=== PATIENT | male | born 1980 | race Caucasian/White ===

== ENCOUNTER → 2024-03-01 14:05 | Outpatient (REF) | payer SELFPAY | LOC: HWRAD 14:05 | PROVIDERS: ATTENDING PHYSICIAN Nurse Practitioner; FAMILY PHYSICIAN Nurse Practitioner Adult Health | DX: I10 Essential (primary) hypertension (principal) | CPT/HCPCS: 75571 ==

== ENCOUNTER 2024-03-27 09:02 | Emergency (ER) | payer BC, SELFPAY ==
[2024-03-27 09:05] VITALS: BP 149/85
--- NOTE | 2024-03-27 11:58 | ED.GENMED ---
History of Present Illness
General
Chief Complaint: Musculo-Skeletal Complaint
Source: patient
Exam Limitations: none
Time Seen by Provider: 03/27/24 09:22
Nursing documentation reviewed up to this point in time: agreed with
History of Present Illness
History of Present Illness:
43 y/o M with h/o HTN, anxiety
left heel pain 2 days ago when he jumped about 6 feet down out of his truck and landed on his left heel
has been able to ewight bear with limp, plcing weight on ball of his foot
maybe mild STS
no skin changes
no other pain
Past History
Past History
ED Past Medical History: GERD, HTN and Psychiatric
Social History
Tobacco: Former smoker
Alcohol: None
Review of Systems
Review of Systems
Allergies reviewed?: Yes
All Other Systems: Not applicable
Phy Exam
Physical Exam
Physical Exam:
GENERAL: Alert , in no apparent distress, comfortable at rest
HEAD: NCAT
CV: 2+ DP PULSES B/L
NEUROLOGICAL: Alert and oriented, no focal neuro deficits, , 5/5 strength, sensation intact, ambulation slight limp right leg
SKIN: Warm and dry, no skin changes/wounds but some calluses to heel and distal foot
MUSCULOSKELETAL: heel is tender mildy with palpation, no other foot tenderness
PSYCH: Normal and appropriate interaction.
Course
Orders/Labs/Results
Orders:
Orders
03/27/24 09:08
Heel, Left 2 View [CR Heel/os [place]cis - Left 2 Vw*] Urgent
Comment: with barefeet
Reason For Exam: left heel pain after jumping out of his truck
Vital Signs
Initial and Last Documented VS:
Initial Vital Signs
Temp Pulse Resp BP Pulse Ox
98.3 F 67 16 149/85 98
03/27/24 09:05 03/27/24 09:05 03/27/24 09:05 03/27/24 09:05 03/27/24 09:05
Last Documented Vital Signs
Temp Pulse Resp BP Pulse Ox
98.3 F 67 16 149/85 98
03/27/24 09:05 03/27/24 09:05 03/27/24 09:05 03/27/24 09:05 03/27/24 09:05
MDM/Problems Addressed
Differential Diagnosis Includes:
heel sput, contusion, fracture
MDM/Problems Addressed:
43 y/o M with L heel pain after jumping down 6 feet off his truck 2 mo ago
mild STS
no wounds
xray indep reveiwed ne gfor fx
offered crutches but pt declined
recommend heel support
nsaids
rice
*Critical Care Note
Total Time (30-74mins, 75-104mins- exclusive of procedures): Not Applicable
ED Attending Note
-
Portions of this chart may have been created with voice recognition software.� Occasional wrong word or��sound alike� substitutions may have occurred due to the inherent limitations of voice recognition software.
Discharge Plan
Departure
Patient Disposition: Home (Routine Discharge)
Date of Disposition: 03/27/24
Time of Disposition: 10:53
Patient with high blood pressure during this ER visit?: No
Condition: Fair
Covid-19: Not Applicable
Discharge Problem:
Contusion of right heel
Instructions: Contusion
Prescriptions:
No Action
zinc acetate 50 mg (zinc) Capsule
50 mg PO DAILY
fluoxetine [Prozac] 10 mg Tablet
30 mg PO DAILY
ascorbic acid (vitamin C) [Vitamin C] 500 mg Tablet
500 mg PO DAILY
pantoprazole 40 mg Tablet,Delayed Release (Dr/Ec)
40 mg PO DAILY
lisinopril 10 mg Tablet
10 mg PO DAILY
vitamin B complex Tablet
1 tab PO DAILY
montelukast [Singulair] 10 mg Tablet
10 mg PO DAILY
fluticasone propionate [Flonase] 50 mcg/actuation [place],Suspension
1 spray INTRANASAL PRN PRN (Reason: allergies)
bupropion HCl [Wellbutrin XL] 300 mg Tablet Extended Release 24 Hr
300 mg PO DAILY
multivitamin
1 tab PO DAILY
oxycodone 5 mg tablet
5 mg PO Q4HPRN PRN (Reason: breakthrough/severe pain) Qty: 10 0RF
Referrals:
Justo Montalvo MD [Active] - Follow up in 5-7 days
Jewels Burrows CRNP [Family Provider] - Follow up in 5-7 days
Activity Restrictions/Additional Instructions:
Your foot is not fractured. You probably have a contusion of your heel. Try to stay off of it for the next couple of days if you could use crutches or limit your weightbearing to help with healing that would help. Ice off-and-on. Ibuprofen every
8 hours. Follow-up with Ortho if it does not improve
Interventions
Interventions:
*ED COVID-19 Vaccine History Last Done: 03/27/24 09:05
*Nursing Disposition Last Done: 03/27/24 11:09
ED-Musculoskeletal Assessment Last Done: 03/27/24 11:06
Discharge Date and Time
Discharge Date/Time: 03/27/24 11:10
Print Language: NIGERIEN
== END 2024-03-27 11:10 | disposition home or self-care (01) ==
LOC: EMR 09:02
PROVIDERS: EMERGENCY PHYSICIAN Emergency Medicine; FAMILY PHYSICIAN Nurse Practitioner Adult Health
DX: S90.31XA Contusion of right foot, initial encounter (principal); X58.XXXA Exposure to other specified factors, initial encounter; I10 Essential (primary) hypertension; F41.9 Anxiety disorder, unspecified
CPT/HCPCS: 99283; 73650